=== PATIENT | male | born 1960 | race African-American/Black ===

== ENCOUNTER 2023-07-19 00:17 | Emergency (ER) | payer OTHER ==
[2023-07-19] MEDS ORDERED: Ibuprofen 200 MG TAB ONE (01:04)
== END 2023-07-19 02:50 | disposition home or self-care (01) ==
LOC: ERS 00:17
DX: M25.561 Pain in right knee (principal); E11.9 Type 2 diabetes mellitus without complications; F17.210 Nicotine dependence, cigarettes, uncomplicated; Z79.899 Other long term (current) drug therapy